=== PATIENT | male | born 1955 | race Caucasian/White ===

== ENCOUNTER 2017-05-06 07:23 | Outpatient (CLI) | payer BC ==
[~2017-05-06] VITALS: Ht 177.8 cm; Wt 127.3 kg
--- NOTE | ~2017-05-06 | HEMODYNAMI ---
PATIENT:ERICA PERRY MEDICAL RECORD: [id number] : 59 LOCATION:[facility] ADMISSION DATE: 05/06/17 Generatedon:05/06/201710:05 Patient name: ERICA PERRY Patient #: [id number] SSN: : 1955 Date of study: 05/06/2017 Page: Of Hemodynamic Procedure Report Patient Data Patient Demographics Procedure consent was obtained First Name: ERICA Gender: Male Last Name: VICKY : 1955 Patient #: [id number] Age: 61 year(s) Race: Unknown Additional ID: [id number] Contact details Address: [address] [place] [address] [address]REET State: [place] City: [place] Zip code: [address] Past Medical History Allergies Allergen Reaction Date Comments Reported Other allergy 01/31/2016 Metformin, Lisinopril Other allergy 05/06/2017 Lisinopril, Metormin, MALACHI Inhinitors. Admission Admission Data Admission Date: 05/06/2017 Admission Time: 7:23 Lab Results Lab Result Date: 05/06/2017 Lab Result Time: 8:20 Biochemistry Name Units Result Min Max BUN mg/dl 24 --(----)-* 7 18 Creatinine mg/dl 1.2 --(---*)-- 0.6 1.3 CBC Name Units Result Min Max Hematocrit % 49.2 --(--*-)-- 42 54 Hemoglobin g/dl 16.5 --(--*-)-- 13.5 17.5 Procedure Procedure Types Cath Procedure Diagnostic Procedure LHC LH w/Coronaries PCI Procedure PTCA PTCA Additional Coronary Atherectomy Atherectomy w/Stent Coronary Initial Miscellaneous Procedures Moderate Sedation up to 30 minutes Procedure Description Procedure Date Procedure Date: 05/06/2017 Procedure Start Time: 9:32 Procedure End Time: 10:03 Procedure Staff Name Function Michel Multani MD Performing Physician Viviana Reese RT Scrub Isaut Colbert RN Nurse Christian Medina RT Monitor Procedure Data Cath Procedure Fluoroscopy Diagnostic fluoroscopy Total fluoroscopy Time: 6.2 time: 6.2 min min Diagnostic fluoroscopy Total fluoroscopy dose: dose: 1247 mGy 1247 mGy Contrast Material Contrast Material Type Amount (ml) Isovue 300 154 Entry Location Entry Primary Successful Side Size Upsize Upsize Entry Closure Succes sful Closure Location (Fr) 1 (Fr) 2 (Fr) Remarks Device Remarks Femoral Right 5 Fr 6 Fr Exoseal artery Short Estimated blood loss: 10 ml Diagnostic catheters Device Type Used For End Catheter Placement MULTIPACK Pigtail 5 Fr Procedure catheter MULTIPACK JL 4.0 5Fr Procedure catheter MULTIPACK 3DRC 5Fr Procedure catheter Procedure Complications No complications Procedure Medications Medication Administration Route Dosage Oxygen NC 2 l/min Lidocaine 2% added to field 20 Heparin Flush Bag added to field 2 bags (1000units/500ml NS) Benadryl I.V. 50 mg 0.9% NaCl I.V. 100 ml/hr Versed I.V. 1 mg Fentanyl I.V. 50 mcg Versed I.V. 1 mg Fentanyl I.V. 50 mcg Heparin Bolus I.V. 4000 units Fentanyl I.V. 50 mcg Hemodynamics Rest HGB: 16.5 (g/dl) Heart Rate: 73 (bpm) Pressure Samples Time Site Value (mmHg) Purpose Heart Use Rate(bpm) 9:34 LV 93/12,20 Snapshot 78 Snapshots Pre Cath Intra NCS Post Cath Vital Signs Time Heart Resp SPO2 etCO2 NIBP (mmHg) Rhythm Pain Sedation Rate (ipm) (%) (mmHg) Status Level (bpm) 9:09:02 73 17 98 29.7 171/97(151) NSR 0 (11) 10(A) , No pain 9:13:57 73 16 100 37.4 187/103(152) NSR 0 (11) 10(A) , No pain 9:18:54 68 14 95 32.8 165/87(133) NSR 0 (11) 10(A) , No pain 9:23:47 66 15 96 43.5 169/90(137) NSR 0 (11) 10(A) , No pain 9:28:40 63 16 96 43.5 154/83(127) NSR 0 (11) 10(A) , No pain 9:33:30 69 14 97 35.9 155/87(123) NSR 0 (11) 9(A) , No pain 9:39:11 70 16 95 0 171/89(142) NSR 0 (11) 9(A) , No pain 9:44:01 69 15 96 26 152/91(132) NSR 0 (11) 9(A) , No pain 9:48:52 67 16 98 23.7 167/89(143) NSR 0 (11) 9(A) , No pain 9:53:45 70 15 99 48.1 169/100(142) NSR 0 (11) 9(A) , No pain 9:59:44 76 16 97 0 197/121(160) NSR 0 (11) 10(A) , No pain Medications Time Medication Route Dose Verified Delivered Reason Notes Effectiveness by by 9:12:49 Oxygen NC 2 Michel Buffie used for l/min Rangel Colbert RN procedure 9:12:57 Lidocaine 2% added 20ml Micheleusebio Pearson for local to vial Rangel Multani MD anesthetic field 9:13:03 Heparin Flush added 2 Michel Michel used for Bag to bags Rangel Multani MD procedure (1000units/500ml field NS) 9:13:17 Benadryl I.V. 50 mg Michel Buffie used for Rangel Colbert RN procedure 9:13:38 0.9% NaCl I.V. 100 Michel Buffie Per physician ml/hr Rangel Colbert RN 9:29:59 Versed I.V. 1 mg Michel Lunsford for sedation Rangel Colbert RN 9:30:04 Fentanyl I.V. 50 Michel Buffie for sedation mcg Rangel Colbert RN 9:34:50 Versed I.V. 1 mg Michel Lunsford for sedation Rangel Colbert RN 9:34:54 Fentanyl I.V. 50 Michel Lunsford for sedation mcg Rangel Colbert RN 9:38:47 Heparin Bolus I.V. 4000 Micheleusebio Kimbleie for verifie d units Rangel Colbert RN anticoagulation with dr multani 9:53:42 Fentanyl I.V. 50 Michel Buffie for sedation mcg Rangel Colbert RN Procedure Log Time Note 8:56:58 Isatu Colbert RN sent for patient. Start room use. 8:56:59 Time tracking: Regular hours 8:57:04 Plan of Care:Hemodynamics will remain stable., Cardiac rhythm will remain stable., Comfort level will be maintained., Respiratory function will remain adequate., Patient/ family verbilizes understanding of procedure., Procedure tolerated without complication., Recovers from procedure without complications.. 9:03:53 Patient received from Pre/Post Procedure Room to CCL 1 Alert and oriented. Tansferred to table in Supine position. 9:03:55 Warm blankets applied, and liu hugger turned on for patient comfort. 9:03:55 Correct patient and procedure confirmed by team. 9:03:57 Signed procedure consent form obtained from patient. 9:03:58 ECG and BP/O2 sat monitors applied to patient. 9:08:19 H&P Date Dictated: 04/27/2017 Within 30 days and on chart., H&P Addendum completed by physician on day of procedure. (MUST COMPLETE FOR ALL OUTPATIENTS). 9:08:21 Pre-procedure instructions explained to patient. 9:08:22 Pre-op teaching completed and patient verbalized understanding. 9:08:24 Family in waiting room. 9:08:25 Patient NPO since Midnight. 9:08:45 Patient allergic to Other allergyLisinopril, Metormin, MALACHI Inhinitors. 9:08:47 Is the patient allergic to Iodine/contrast media? No. 9:08:49 Is patient on blood thinner?Yes 9:08:52 ACC The patient was administered the following blood thiners within the last 24 hours: ACCPlavix 9:09:39 Patient diabetic? Yes. 9:09:41 If diabetic: On Metformin? No 9:09:44 Previous problem with sedation/anesthesia? No ? 9:10:14 Snore? Yes 9:10:18 Sleep apnea? Yes 9:10:20 Deviated septum? No 9:10:20 Opens mouth fully? Yes 9:10:22 Sticks out tongue? Yes 9:10:24 Airway obstruction? No ? 9:10:35 Dentures? No ? 9:10:48 Pre procedure: right dorsailis pedis pulse 1+ Palpable, but thready & weak; easily obliterated 9:10:51 Patient pain scale 0/10 ?. 9:11:16 IV patent on arrival in left forearm with 0.9% NaCl at O. 9:12:49 Oxygen 2 l/min NC was administered by Isatu Colbert RN; used for procedure; 9::56 Lab Result : BUN 24 mg/dl 9:: Lab Result : Hemoglobin 16.5 g/dl 9::56 Lab Result : Creatinine 1.2 mg/dl 9::56 Lab Result : Hematocrit 49.2 % 9:12:57 Lidocaine 2% 20ml vial added to field was administered by Michel Multani MD; for local anesthetic; 9::59 Lab results completed and on chart. 9:13:02 Right groin area was prepped with chlora-prep and draped in sterile fashion 9:13:03 Heparin Flush Bag (1000units/500ml NS) 2 bags added to field was administered by Michel Multani MD; used for procedure; 9:13:07 Alarms reviewed by R. N. 9:13:07 Sharps counted by scrub and verified by R.N. 9:13:11 Use device set Femoral Dx 9:13:13 ACIST Syringe (50231) opened to sterile field. 9:13:17 Benadryl 50 mg I.V. was administered by Isatu oClbert RN; used for procedure; 9:13:18 Medline Cath Pack ([id number]) opened to sterile field. 9:13:20 ACIST Hand Control (56546) opened to sterile field. 9:13:21 ACIST Manifold (37634) opened to sterile field. 9:13:22 Tegaderm 4 x 4 (1626W) opened to sterile field. 9:13:25 PERCUTANEOUS ENTRY 19GA needle opened to sterile field. 9:13:27 Bag Decanter (2002) opened to sterile field. 9:13:31 DIAGNOSTIC WIRE .035 260cm J wire (443097) opened to sterile field. 9:13:32 SHEATH 5FR [place] (ILX901) opened to sterile field. 9:13:33 DIAGNOSTIC Multipack 5Fr catheter set (LR0517) opened to sterile field. 9:13:38 0.9% NaCl 100 ml/hr I.V. was administered by Isatu Colbert RN; Per physician; 9:15:58 Physician paged 9:16:11 Baseline sample Acquired. 9:16:14 Rhythm: sinus rhythm 9:18:48 Zero performed for pressure channel P1 9:29:06 Physician arrived 9:29:06 --------ALL STOP TIME OUT------ 9:29:07 Final Timeout: patient, procedure, and site verified with staff and physician. All members of the team are in agreement. 9:29:10 Right groin site verified by team. 9:29:13 Physical assessment completed. ASA score P 2 - A patient with mild systemic disease as per Michel Multani MD. 9:29:16 Sedation plan: IV Moderate Sedation Medication:Versed, Fentanyl 9::59 Versed 1 mg I.V. was administered by Isatu Colbert RN; for sedation; 9:30:04 Fentanyl 50 mcg I.V. was administered by Isatu Colbert RN; for sedation; 9:32:15 Procedure started. 9:32:15 Full Disclosure recording started 9:32:18 Local anesthetic to right femoral artery with Lidocaine 2% by Michel Multani MD.INITIAL ACCESS ONLY 9:33:24 A 5 Fr sheath was inserted into the Right Femoral artery 9:34:01 A MULTIPACK Pigtail 5 Fr catheter was advanced over the wire and used for Procedure. 9:34:27 LV gram done using DOE 9:34:30 Injector settings: Ml/sec: 10, Volume: 20, 9:34:35 EF : 50 % 9:34:37 Catheter exchanged over wire. 9:34:41 A MULTIPACK JL 4.0 5Fr catheter was advanced over the wire and used for Procedure. 9:34:50 Versed 1 mg I.V. was administered by Isatu Colbert RN; for sedation; 9:34:54 Fentanyl 50 mcg I.V. was administered by Isatu Colbert RN; for sedation; 9:35:51 LCA angiography performed. 9:36:42 SHEATH 6FR [place] (WFN380) opened to sterile field. 9:36:43 INFLATOR Merit BasixCompak (TO7172) opened to sterile field. 9:36:51 WHISPER 190cm wire ([id number]) opened to sterile field. 9:36:56 Catheter exchanged over wire. 9:37:00 A MULTIPACK 3DRC 5Fr catheter was advanced over the wire and used for Procedure. 9:37:09 RCA angiography performed. 9:38:18 Catheter removed. 9:38:23 Sheath upsized to a 6 Fr Short. 9:38:26 GUIDE 5FR AR 2.0 catheter ([id number]) opened to sterile field. 9:38:47 Heparin Bolus 4000 units I.V. was administered by sIatu Colbert RN; for anticoagulation; verified with dr multani 9:39:49 RCA angiography performed. 9:40:19 Catheter removed. 9:40:25 GUIDE 6FR XBLAD 3.5 catheter ([id number]) opened to sterile field. 9:40:47 6 Fr xblad 3.5 guide catheter was inserted over the wire 9:44:46 whisper wire advanced. 9:47:32 Wire advanced across lesion. 9:48:06 A LASER ELCA 0.9 Rx atherectomy catheter (666956) was prepped and advanced across the Mid LAD lesion. Pass Number: 1 9:48:35 A LASER ELCA 0.9 Rx atherectomy catheter (691280) was prepped and advanced across the Mid LAD lesion. Pass Number: 2 9:49:08 Laser pass to mLAD with Fluence of 40 and Rate of 40. 9:49:17 Laser pass to mLAD with Fluence of 80 and Rate of 80. 9:49:40 Laser pass to mLAD with Fluence of 80 and Rate of 80. 9:50:21 Laser catheter removed. 9:50:50 Laser total pulses delivered: 2376 9:51:00 Laser total treatment time: 0 minutes 39 seconds 9:53:27 Inflation Number: 1 A STACI RX 3.5 x 15 stent ([id number]) was prepped and advanced across the Mid LAD. The stent was deployed at 21 VIKY for 0:10 (min:sec). 9:53:42 Fentanyl 50 mcg I.V. was administered by Isatu Colbert RN; for sedation; 9:54:59 Stent catheter was removed intact over wire. 9:55:00 Wire removed. 9:55:08 WHISPER 190cm wire ([id number]) opened to sterile field. 9:55:21 whisper wire advanced. 9:55:29 Wire advanced across lesion. 9:57:39 Inflation number: 1 The stent balloon was then re-inflated across the 1st Diag to 8 VIKY for 0:10 (min:sec). 9:58:23 Inflation number: 2 The stent balloon was then re-inflated across the 1st Diag to 13 VIKY for 0:10 (min:sec). 9:58:39 Stent catheter was removed intact over wire. 9:58:44 EXOSEAL 6Fr (EX600) opened to sterile field. 9:59:05 Wire removed. 9:59:06 Guide catheter removed. 9:59:18 Sheath removed intact; hemostasis achieved with Exoseal to the Right Femoral artery. 9:59:20 Procedure ended.(Physican Out) 9:59:38 Fluoroscopy time 06.20 minutes. 9:59:43 Fluoroscopy dose: 1247 mGy 9:59:43 Flurop Dose total: 1247 9:59:47 Contrast amount:Isovue 300 154ml. 10:01:19 Sharps counted by scrub and verified by R.N. 10:01:22 Insertion/operative site no bleeding no hematoma. 10:01:24 Post-op/insertion site Right Femoral artery dressed using a 4 x 4 and Tegaderm. 10:01:36 Post right femoral artery:stable, soft, clean and dry 10:01:39 Post Procedure Pulses reassessed and unchanged 10:01:42 Post-procedure physical assessment completed. ASA score P 2 - A patient with mild systemic disease as per Michel Multani MD. 10:01:45 Post procedure rhythm: unchanged. 10:01:47 Estimated blood loss: 10 ml 10:01:48 Post procedure instruction explained to patient.Patient verbalizes understanding. 10:01:50 Patient needs reinforcement of post procedure teaching. 10:02:43 Procedure type changed to Cath procedure, Diagnostic procedure, LHC, LHC w/Coronaries, PCI procedure, PTCA, PTCA Additional, Coronary Atherectomy, Atherectomy w/Stent Coronary Initial, Miscellaneous Procedures, Moderate Sedation up to 30 minutes 10:03:17 Procedure and supply charges have been captured, reviewed, submitted and are correct. 10:03:20 Procedure Complication : No complications 10:03:22 Vital chart was stopped 10:03:22 See physician's report for complete and final results. 10:03:24 Report given to Pre/Post Procedure Room. 10:03:26 Patient transfered to Pre/Post Procedure Room with Stretcher. 10:03:28 Procedure ended. 10:03:28 Full Disclosure recording stopped 10:03:34 End room use (Document Last) Intervention Summary Intervention Notes Time ActionType Lesion and Equipment Used Action# Pressure Duration Attributes 9:48:06 Atherectomy Mid LAD LASER ELCA 0.9 00:10 Rx atherectomy catheter (832795) 9:48:35 Atherectomy Mid LAD LASER ELCA 0.9 00:10 Rx atherectomy catheter (449899) 9:53:27 Place stent Mid LAD STACI RX 3.5 x 1 21 00:10 15 stent ([id number]) 9:57:39 Reinflate 1st Diag STACI RX 3.5 x 1 8 00:10 stent 15 stent balloon ([id number]) 9:58:23 Reinflate 1st Diag STACI RX 3.5 x 2 13 00:10 stent 15 stent balloon ([id number]) Device Usage Item Name Manufacture Quantity Catalog [facility] Lot# / Number Charge Number Stock Stock Serial# Code ACIST Syringe Acist 1 89870 [id number] 039943 195986 20 (89870) Medical Systems Inc Medline Cath Cardinal 1 [id number] 031826 22978 509320 5 Pack Health ([id number]) ACIST Hand Acist 1 75638 158725 180655 608493 5 Control Medical (81507) Systems Inc ACIST Manifold Acist 1 96206 582259 053805 548363 5 (83033) Medical Systems Inc Tegaderm 4 x 4 3M 1 1626W 176317 264418 823371 5 (1626W) PERCUTANEOUS [employer] [facility] 1 V82803 426048 468304 5 ENTRY 19GA needle Bag Decanter Microtek 1 2001S 651322 13526 282545 5 (2001S) Medical Inc. DIAGNOSTIC St Leonel 1 576456 382442 175908 057661 30 WIRE .035 260cm J wire (678013) SHEATH 5FR Terumo 1 WQO423 541638 270643 837294 40 [place] (JUS355) DIAGNOSTIC Cardinal 1 GC3455 164866 18768 262286 30 Multipack 5Fr Health catheter set (HP3934) MULTIPACK Cardinal 1 340372 5 Pigtail 5 Fr Health catheter MULTIPACK JL Cardinal 1 017031 5 4.0 5Fr Health catheter SHEATH 6FR Terumo 1 ZQH525 021463 832857 543624 40 [place] (CSU617) INFLATOR Merit Merit 1 TZ5947 234504 148165 869577 15 [facility] (UN5638) WHISPER 190cm Vu 2 [id number] 281822 303176 250647 5 wire Vascular ([id number]) MULTIPACK 3DRC Cardinal 1 345464 5 5Fr catheter Health GUIDE 5FR AR Medtronic 1 [id number] 288410 062823 275392 1 2.0 catheter ([id number]) GUIDE 6FR Cardinal 1 [id number] 579281 724115 713931 10 XBLAD 3.5 Health catheter ([id number]) LASER ELCA 0.9 Young 1 110-004 814623 902465 744142 5 [id number] Rx atherectomy Healthcare catheter (129740) (820052) STACI RX 3.5 x Medtronic 1 [id number] 565578 6361757 001376 5 [id number] 15 stent ([id number]) EXOSEAL 6Fr Cardinal 1 EX600 468065 803422 824658 10 (EX600) Health Signature Audit [place] Stage Time Signature Unsigned Intra-Procedure 05/06/2017 Christian Medina 10:05:16 AM RT(R) Signatures Monitor : Christian Medina RT Signature : Date : Time : [address] [address]
[~2017-05-06 07:23] MED LIST: ASPIRIN EC81 MG PO; ASPIRIN325 MG PO; BAYER CHEWABLE81 MG PO; CLARITIN 10 MG10 MG PO; COSOPT EYE DROPS5 ML LEFT EYE; CRESTOR10 MG PO; DIOVAN HCT 160/1 TA1 PO; FISH OIL 1,0001 CA1 PO; FUROSEMIDE20 MG PO; GLUCOPHAGE500 MG PO; HUMULIN 70100 UNIT/1 SQ; INVOKANA300 MG PO; ISOSORBIDE DINI30 MG PO; ISOSORBIDE MONO30 M1; ISOSORBIDE MONO30 M1 PO; K-TAB10 MEQ PO; LASIX20 MG PO; MULTI-DAY VITAM1 TAB PO; NEXIUM20 MG PO; PLAVIX75 MG PO; PROTONIX40 MG PO; TOPROL XL100 MG; TOPROL XL50 MG PO; XALATAN 0.0052.5 ML LEFT EYE; [UNRECOGNIZED DRUG - OTHER]
[2017-05-06] MEDS ORDERED: JARDIANCE10 MG PO (08:06)
[2017-05-06] MEDS ORDERED: HYZAAR 50-12.51 TAB PO (08:07)
[2017-05-06] MEDS ORDERED: NEXIUM40 MG PO (08:08)
[2017-05-06] MEDS ORDERED: TRUSOPT 2 % OPT10 ML EACH EYE (08:11)
[2017-05-06 08:20] VITALS: BP 144/78; Ht 177.8 cm; Wt 127.3 kg
[2017-05-06 08:22] LABS: BASOPHILS 0.3 % (0-2); EOSINOPHILS 2.7 % (0-7); HEMATOCRIT 49.2 % (42.0-54.0); HEMOGLOBIN 16.5 g/dL (13.5-17.5); IMMATURE GRANULOCYTES 0.3 % (0-5); LYMPHOCYTES 22.9 % (15-50); MCH 31.6 pg (26.0-34.0); MCHC 33.5 g/dL (31.0-37.0); MCV 94.3 fL (80.0-100.0); MEAN PLATELET VOLUME 10.3 fL (7.4-10.4); MONOCYTES 13.7 % (2-11); NEUTROPHILS 60.1 % (40-80); PLATELET COUNT 168 10x3/uL (130-400); RBC 5.22 10x6/uL (4.20-6.10); RDW 12.6 % (11.5-14.5); WBC 6.6 10x3/uL (4.8-10.8)
[2017-05-06 09:00] LABS: ANION GAP 10.5 mmol/L (8-16); CALCIUM 9.4 mg/dL (8.5-10.1); CARBON DIOXIDE 31.6 mmol/L (21.0-32.0); CREATININE - SERUM 1.2 mg/dL (0.6-1.3); POTASSIUM - SERUM 4.1 mmol/L (3.5-5.1)
--- NOTE | 2017-05-06 10:32 | NUR ---
1020 RECEIVED PT FROM GLASSWARE VERIFIER. PT IS DROWSY, DENIES ANY C/O. DRESSING TO RIGHT GROIN IS CDI, AREA IS SOFT AND NONTENDER. PEDAL PULSES PALPABLE. NSR, DENIES ANY C/O CHEST PAIN.
--- NOTE | 2017-05-06 10:35 | NUR ---
1035 PT SLEEPING, AWAKENS EASILY TO VERBAL STIMULI. DENIES ANY C/O. DRESSING TO RIGHT GROIN IS CDI, AREA SOFT AND NONTENDER, PEDAL PULSES PALPABLE. FAMILY AT BEDSIDE, CALL LIGHT IN REACH. RR EVEN AND UNLABORED.
--- NOTE | 2017-05-06 11:06 | NUR ---
1050 DRESSING CDI, RR EVEN AND UNLABORED. PEDAL PULSES PALPABLE.
--- NOTE | 2017-05-06 11:10 | NUR ---
1110 PT SLEEPING, AWAKENS EASILY. DRESSING TO RIGHT GROIN IS CDI, AREA IS SOFT AND NONTENDER. PEDAL PULSES PALPABLE. CALL LIGHT IN REACH.
--- NOTE | 2017-05-06 12:43 | NUR ---
1145 PT SLEEPING, AWAKENS TO VERBAL STIMULI. DENIES ANY C/O. DRESSING TO RIGHT GROIN IS CDI, AREA IS SOFT AND NONTENDER. IV PATENT AND INFUSING PER ORDERS. FAMILY AT BEDSIDE, CALL LIGHT IN REACH.
--- NOTE | 2017-05-06 12:44 | NUR ---
PT SLEEPING, DRESSING TO RIGHT GROIN IS CDI, AREA IS SOFT AND NONTENDER. PEDAL PULSES PALPABLE. FAMILY AT BEDSIDE, CALL LIGHT IN REACH.
--- NOTE | 2017-05-06 13:25 | NUR ---
1325 HOB ELEVATED 45 DEGREES, SANDWICH AND PO FLUIDS SERVED. DRESSING TO RIGHT GROIN IS CDI, AREA IS SOFT AND NONTENDER.
--- NOTE | 2017-05-06 13:40 | NUR ---
1340 PT JOSE SANDWICH AND COLA WITH NO C/O NAUSEA. HOB ELEAVETED 90 DEGREES. DRESSING CDI, NO BLEEDING OR HEMATOMA NOTED. IV DC'D WITH CATH INTACT. PT DRESSING FOR DC TO HOME.
--- NOTE | 2017-05-06 13:50 | NUR ---
0190 DC INSTRUCTIONS REVIEWED WITH PT WHO VERBALIZES UNDERSTANDING. PT IS DRESSED FOR DC TO HOME. DENIES ANY C/O.
--- NOTE | 2017-05-06 14:27 | NUR ---
1400 ASSISTED PT TO THE BATHROOM VIA WC, PT VOIDED QS. PT ESCORTED TO PRIVATE AUTO VIA WC BY NURSE WITH DRIVING HIM HOME. PT DENIES ANY C/O UPON DC TO HOME.
--- NOTE | 2017-05-06 15:46 | OP ---
PATIENT NAME: ERICA PERRY MEDICAL RECORD: [id number] :[birth year] LOCATION:D.CAT ADMISSION DATE: SURGEON: UZIEL ORR MD DATE OF OPERATION: 05/06/2017 PROCEDURES: 1. Laser atherectomy of LAD. 2. PTCA and stent of LAD. 3. PTCA of LAD and diagonal. 4. Left heart catheterization. 5. Selective coronary angiography. 6. Left ventriculogram. INDICATION: Angina and coronary artery disease. PROCEDURE IN DETAIL: After informed consent was obtained and after detailed explanation of risks, benefits as well as alternative therapies, the patient elected to proceed with angiogram and angioplasty. The right femoral area was prepped and draped in normal sterile fashion. The right femoral artery was cannulated via modified Seldinger technique with placement of a 6-Danish sheath. All catheters exchanged through this sheath. FINDINGS: The left ventriculogram was performed in the standard 30-degree DOE view reveals preserved cardiac wall motion, ejection fraction in the 50% range. SELECTIVE CORONARY ANGIOGRAPHY: 1. Left main showed no significant angiographic disease. 2. Left anterior descending has previously placed stents with up to 80% in-stent restenosis in the mid vessel. The diagonal has previously placed stents with up to 80% in-stent restenosis in the mid vessel. 3. The left circumflex has previously placed stents. These are widely patent with no significant restenosis. No disease elsewise. 4. The right coronary has previously placed stents. These are widely patent with no significant restenosis. No disease elsewise. LASER ATHERECTOMY OF THE LAD: We did laser atherectomy at 40/40 and 80/80 throughout the LAD stenting this with a 3.5 x 15 mm Mumtaz. We used the stent balloon and the diagonal with inflations up to 13 atmospheres. Result was 0% residual throughout. OVERALL IMPRESSION: Successful laser atherectomy, PTCA and stent of the LAD going from 80% initial stenosis to 0% residual. TRANSINT:[id number] Voice Confirmation ID: [id number] DOCUMENT ID: [id number] UZIEL ORR MD at 1546 CC: [id number] DICTATION DATE: 05/06/17 1002 EQUESTRIAN TRAINER: 05/06/17 1240 DEP CLI 05/06/17 [address] [place] [address]
== END 2017-05-06 14:00 | disposition home or self-care (01) ==
LOC: D.CATH 07:23
PROVIDERS: Internal Medicine Interventional Cardiology
DX: I25.119 Atherosclerotic heart disease of native coronary artery with unspecified angina pectoris (principal); T82.855A Stenosis of coronary artery stent, initial encounter; Z01.812 Encounter for preprocedural laboratory examination